=== PATIENT | female | born 1990 | race Caucasian/White ===

== ENCOUNTER → 2018-03-03 07:00 | Outpatient (REF) | payer MEDICARE, MEDICAID, SELFPAY | LOC: LBN 07:00 | PROVIDERS: PCP Nurse Practitioner Family; Visit Provider Nurse Practitioner Family | DX: R19.7 Diarrhea, unspecified (principal); R10.9 Unspecified abdominal pain | CPT/HCPCS: 87324 ==

== ENCOUNTER → 2018-03-13 01:07 | Outpatient (CLI) | payer MEDICARE, MEDICAID, SELFPAY ==
[2018-03-13 09:10] LABS: Abs Immature Grans 0.01 k/cumm (0.0-0.09); Absolute Basophil Count 0.02 k/cumm (0.0-0.2); Absolute Eosinophil Count 0.04 k/cumm (0.0-0.7); Absolute Lymphocyte Count 1.25 k/cumm (1.2-3.4); Absolute Monocyte Count 0.44 k/cumm (0.11-0.7); Absolute Neutrophil Count 3.55 k/cumm (1.2-6.7); Basophils % 0.4; Eosinophils % 0.8; HCT 33.8 % (36.0-46.0); HGB 11.5 g/dL (12.0-15.5); Immature Grans % 0.2; Lymphocytes % 23.5; Mean Corpuscular Hemoglobin 30.5 pg (27.0-33.0); Mean Corpuscular Volume 89.7 fL (80-95); Mean Platelet Volume 9.5 fL (8.0-11.0); Monocytes % 8.3; Neutrophils % 66.8; Platelet Count 212 x1000/uL (130-400); RBC 3.77 m/cumm (4.00-5.20); RBC Distribution Width 12.6 % (11.7-14.6); White Blood Cell Count 5.31 k/cumm (4.4-10.8)
[2018-03-13] MEDS: Omnipaque 350 MG/ML 100 ML BTL IJ (10:02)
--- NOTE | 2018-03-13 10:18 | DI.RPTCT_ITS ---
SYMPTOMS/DIAGNOSIS: ACUTE ABD PAIN, R10.9, LUQ PAIN, R10.12 CT SCAN OF THE ABDOMEN AND PELVIS: The study was carried out with intravenous administration of 69 cc's of Omnipaque 350 and oral ingestion of dilute barium. The lung bases are unremarkable. The liver is intact. The gallbladder, pancreas and spleen are normal. The kidneys and adrenals are normal. A grossly dilated gas and fluid containing stomach is identified. Gas is identified throughout the small bowel. Contrast material is noted in the distal small bowel and colon and a considerable quantity of colonic gas is evident. The rectum is distended with feces. There is nothing to suggest an acute appendix. There is no free fluid or free air in the intraperitoneal space. The uterus is unremarkable. There is a 2.8 cm left ovarian cyst. The bladder contains a small quantity of urine. Bladder wall thickening is likely on the basis of nondistention. There is no evidence of an aortic aneurysm. 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 SUMMARY: Findings consistent with a generalized ileus. The stomach is grossly distended with gas and fluid. Note is made of a 2.8 cm left ovarian cyst and a large quantity of fecal material in the rectum.
[2018-03-13 11:43] LABS: Bilirubin Negative (Negative); Blood Trace-intact (Negative); Clarity Clear; Glucose Negative (Negative); Ketones 40 mg/dL (Negative); Leukocyte Esterase Negative (Negative); Nitrite Negative (Negative); Specific Gravity <= 1.005 (1.005-1.025); Urobilinogen 0.2 EU/dL (Up TO 0.2)
[2018-03-13 12:00] LABS: Bacteria Few HPF (Negative); C & S Indicated? No; Casts Negative LPF (Negative); Crystals Negative HPF (Negative); Epithelial Cells Few HPF (Negative); Mucus Negative (Negative); RBC 0-2 (0-2); WBC 0-2 HPF (0-5)
== END ==
PROVIDERS: PCP Nurse Practitioner Family; Visit Provider Nurse Practitioner Family
DX: R10.12 Left upper quadrant pain (principal); R82.4 Acetonuria; K56.7 Ileus, unspecified; N83.292 Other ovarian cyst, left side
CPT/HCPCS: 74177; 81003; 81015; 85025; J3490

== ENCOUNTER 2018-06-11 14:42 | Outpatient (CLI) | payer MEDICARE, MEDICAID, SELFPAY ==
[2018-06-11 15:19] LABS: Abs Immature Grans 0.02 k/cumm (0.0-0.09); Absolute Basophil Count 0.02 k/cumm (0.0-0.2); Absolute Eosinophil Count 0.07 k/cumm (0.0-0.7); Absolute Lymphocyte Count 1.43 k/cumm (1.2-3.4); Absolute Neutrophil Count 4.21 k/cumm (1.2-6.7); Basophils % 0.3; Eosinophils % 1.1; HCT 36.3 % (36.0-46.0); HGB 11.9 g/dL (12.0-15.5); Immature Grans % 0.3; Lymphocytes % 22.9; Mean Corp. HGB Concentration 32.8 g/dL (32.0-36.0); Mean Corpuscular Hemoglobin 29.7 pg (27.0-33.0); Mean Corpuscular Volume 90.5 fL (80-95); Mean Platelet Volume 9.3 fL (8.0-11.0); Neutrophils % 67.4; Platelet Count 253 x1000/uL (130-400); RBC 4.01 m/cumm (4.00-5.20); RBC Distribution Width 13.2 % (11.7-14.6); White Blood Cell Count 6.25 k/cumm (4.4-10.8)
[2018-06-11 15:20] LABS: Bilirubin Negative (Negative); Blood Negative (Negative); Clarity Clear; Glucose Negative (Negative); Ketones Negative (Negative); Leukocyte Esterase Negative (Negative); Nitrite Negative (Negative); Specific Gravity >= 1.030 (1.005-1.025); Urobilinogen 0.2 EU/dL (Up TO 0.2); pH 6.5 (5-8)
== END 2018-06-11 15:02 ==
PROVIDERS: PCP Nurse Practitioner Family; Visit Provider Nurse Practitioner Family
DX: D64.9 Anemia, unspecified (principal); R31.9 Hematuria, unspecified
CPT/HCPCS: 36415; 81003; 85025

== ENCOUNTER 2019-01-01 19:45 | Emergency (ER) | payer MEDICARE, MEDICAID, SELFPAY ==
[2019-01-01 19:49] VITALS: BP 130/78; PULSE 72; RESP 20; TEMP 36.7; O2SAT 99
--- NOTE | 2019-01-01 20:45 | W.ED.GENAD ---
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 Clinical Impression: Gardnerella vaginalis infection Primary Care Provider: Olivia Alberto ED Provider: Nery Burch Home Meds and New Rx's Prescriptions: New metronidazole [Flagyl] 500 mg tablet 500 mg PO BID Qty: 13 RF: 0 Continued acetaminophen [Tylenol] 325 MG tablet 325 mg PO Q6H PRN PRNRF: 0 prazosin 1 MG capsule 2 mg PO HS RF: 0 medroxyprogesterone 150 MG/ML suspension 150 mg IM RF: 0 quetiapine [Seroquel] 25 MG tablet 50 mg PO BID RF: 0 cholecalciferol (vitamin D3) [Vitamin D3] 400 UNIT capsule 400 unit PO DAILY RF: 0 sertraline 25 MG tablet 150 mg PO HS RF: 0 omeprazole 20 mg Capsule,Delayed Release(Dr/Ec) 20 mg PO DAILY RF: 0 Discharge Instructions Instructions: Metronidazole (By mouth), Bacterial Vaginosis (ED) Additional Instructions: Encourage hydration. Tylenol and/or ibuprofen as needed for discomfort. Please take antibiotics as prescribed. Even if symptoms improve, please take the entire course. Please follow-up with primary care next week if symptoms do not completely resolve. If you develop fever/chills, vomiting, increased pain, inability stay hydrated or other new/worsening symptoms please seek care urgently once again Referrals: Olivia Alberto [Primary Care Provider] - Medical Decision Making Patient is a 28 year old female, accompanied by care givers, with cc of vaginal pain. Patient has history of anxiety, depression, developmental delay. No previous abdominal surgeries. States that she was having some itching, had been endorsing this for the past few days. Was seen by PCP today. Care givers report that she typically does not allow for vaginal exam. Was diagnosed with yeast infection and started on oral therapy. Despite this, symptoms have increased. No known fevers. Care givers report diminished appetite. No abdominal pain on exam. She would not tolerate speculum exam. No notable lesions, swelling on exam of external genitalia. She does have thin white discharge, have sent for vaginal pathology. As she is difficult to obtian history from and symptoms are very vague, plan for labs as well. Abdomen benign, no peritoneal findings. Patietn appears nontoxic, she appears to be at her baseline Gardnerella positive. Blood work reassuring without significant abnormality. Discussed findings with patient and caregivers. Raimundo treat with Flagyl. Given strict return precautions. Advised f/u with PCP next week. She will continue with Flagyl. All questions and concerns were addressed. Patient and caregivers in agreement with this plan. HPI General Mode of arrival: ambulatory. Date/Time Provider Initiated Documentation: 01/01/19 20:38. Limitations to Documentation: no limitations. Information obtained by: patient, family (accompanied by 3 caregivers) and RN notes reviewed. History of Present Illness 28 year old F presents to the emergency department with the chief complaint of vaginal pain, described as severe, with intensity rated at 10. Quality is described as burning, and is localized to the genitals. Patient reports no radiation. Patient started experiencing this day(s) and it has been constant. No relieving factors improve symptom(s), No exacerbating factors reported . Patient notes loss of appetite; denies chest pain, fever/chills, headaches, nausea/vomiting and rash. Patient did receive the following treatments prior to arrival, other (tylenol) Related Data Home Medications Medication Instructions Recorded Confirmed acetaminophen [Tylenol] 325 mg PO Q6H PRN PRN 01/08/13 01/01/19 medroxyprogesterone 150 mg IM 01/08/13 01/08/13 prazosin 2 mg PO HS 01/08/13 01/01/19 quetiapine [Seroquel] 50 mg PO BID 04/27/16 01/01/19 cholecalciferol (vitamin D3) 400 unit PO DAILY 03/22/17 01/01/19 [Vitamin D3] sertraline 150 mg PO HS 03/22/17 01/01/19 metronidazole [Flagyl] 500 mg PO BID #13 tab 01/01/19 omeprazole 20 mg PO DAILY 01/01/19 01/01/19 Previous Rx's Medication Instructions Recorded metronidazole [Flagyl] 500 mg PO BID #13 tab 01/01/19 Allergies Allergy/AdvReac Type Severity Reaction Status Date / Time erythromycin base AdvReac Unknown unknown Unverified 01/01/19 19:56 [Erythromycin Base] melatonin AdvReac Unknown states a Unverified 01/01/19 19:56 sensitivity Sulfa (Sulfonamide AdvReac Unknown states Unverified 01/01/19 19:56 Antibiotics) sensitivty sulfamethoxazole AdvReac Unknown unkown Unverified 01/01/19 19:56 [From Bactrim] trimethoprim [From Bactrim] AdvReac Unknown unkown Unverified 01/01/19 19:56 tape AdvReac Mild Hives Uncoded 01/01/19 19:56 General Stated Complaint: LIGHT CLEANER TUNG: 4 Review of Systems Constitutional Reports as per HPI, Denies chills, Denies fatigue, Denies fever(s) and Denies headache(s) ENT Denies headache(s) Cardiovascular Reports as per HPI, Denies chest pain and Denies dyspnea Respiratory Reports as per HPI, Denies cough and Denies dyspnea Gastrointestinal Reports as per HPI Musculoskeletal Reports as per HPI and Denies back pain Integumentary/Breasts Reports as per HPI and Denies rash Neurologic Reports as per HPI and Denies headache(s) Endocrine Denies fatigue PFS Social History Smoking/Tobacco Use Status: Never Drug use: Never Exam Const General: cooperative, healthy appearing, comfortable, no acute distress and well developed Nutritional Appearance: average body habitus and well nourished Orientation: alert and awake HENMT Head: normal to inspection Mouth: moist mucous membranes Resp Effort & Inspection: normal respiratory effort, able to speak in complete sentences and no respiratory distress Auscultation: clear to auscultation bilaterally, no rales, no rhonchi and no wheezes Cardio Rate: regular rate Rhythm: regular rhythm Heart Sounds: S1 normal and S2 normal GI Inspection: normal to inspection Palpation: soft, no hepatosplenomegaly, not firm, no guarding, not rigid and nontender Percussion: normal to percussion Auscultation: normal bowel sounds External Female Exam: external appearance normal, no erythema, externally tender bilaterally (patient very jumpy during exam, reports generalized pain), no external swelling, no lesions, no ecchymosis, No lesion of urethra, No bartholin cyst and other (white vaginal discharge noted) Speculum Exam - Vagina: abnormal appearance of the vagina (will not tolerate this exam) Back/Spine/Pelvis Back: no CVA tenderness Skin General skin exam: no rashes or lesions noted Trauma: no lacerations or abrasions Neuro General: alert and awake Cognition: normal cognition Speech: speech normal Gait: normal gait Extrem General: normal to inspection, normal capillary refill, no pedal edema, no calf tenderness and normal gait Psych Appearance: grossly normal and well kempt Mental Status: mental status grossly normal Speech and Movement: speech and movement normal Course Vital Signs Temperature 36.7 C 01/01/19 19:49 Pulse 72 01/01/19 19:49 Respiratory Rate 20 01/01/19 19:49 Blood Pressure 130/78 01/01/19 19:49 Pulse Oximetry 99 01/01/19 19:49 Temperature 36.7 C 01/01/19 19:49 Temperature Source Skin 01/01/19 19:49 Pulse 72 01/01/19 19:49 Respiratory Rate 20 01/01/19 19:49 Respiratory Effort Non-Labored 01/01/19 20:04 Blood Pressure 130/78 01/01/19 19:49 Blood Pressure Position Standing 01/01/19 19:49 Pulse Oximetry 99 01/01/19 19:49 Oxygen Delivery Method Room Air 01/01/19 19:49 Oxygen Flow Rate 0 01/01/19 19:49 Pain Level 10 01/01/19 19:49
[2019-01-01] MEDS: Ibuprofen 600 MG TAB PO (21:00)
[2019-01-01 21:27] LABS: Bilirubin Negative (Negative); Blood Trace-lysed (Negative); Clarity Clear; Glucose Negative (Negative); Ketones 15 mg/dL (Negative); Leukocyte Esterase Negative (Negative); Nitrite Negative (Negative); Specific Gravity >= 1.030 (1.005-1.025); Urobilinogen 0.2 EU/dL (Up TO 0.2); pH 5.5 (5-8)
[2019-01-01 21:35] LABS: Bacteria Few HPF (Negative); C & S Indicated? No/Sq. Contamination; Casts Negative LPF (Negative); Crystals Negative HPF (Negative); Epithelial Cells Moderate HPF (Negative); Mucus Heavy (Negative); Other Cells Negative (Negative); RBC 0-2 (0-2)
[2019-01-01 22:45] LABS: Lactate-non-spesis 0.9 mmol/l (0.6-1.4)
[2019-01-01 22:48] LABS: Abs Immature Grans 0.01 k/cumm (0.0-0.09); Absolute Basophil Count 0.02 k/cumm (0.0-0.2); Absolute Eosinophil Count 0.06 k/cumm (0.0-0.7); Absolute Lymphocyte Count 1.63 k/cumm (1.2-3.4); Absolute Monocyte Count 0.47 k/cumm (0.11-0.7); Absolute Neutrophil Count 4.29 k/cumm (1.2-6.7); Basophils % 0.3; Eosinophils % 0.9; HCT 38.1 % (36.0-46.0); HGB 12.8 g/dL (12.0-15.5); Immature Grans % 0.2; Lymphocytes % 25.2; Mean Corp. HGB Concentration 33.6 g/dL (32.0-36.0); Mean Corpuscular Hemoglobin 29.4 pg (27.0-33.0); Mean Corpuscular Volume 87.6 fL (80-95); Mean Platelet Volume 9.2 fL (8.0-11.0); Monocytes % 7.3; Neutrophils % 66.1; Platelet Count 213 x1000/uL (130-400); RBC 4.35 m/cumm (4.00-5.20); RBC Distribution Width 13.1 % (11.7-14.6); White Blood Cell Count 6.48 k/cumm (4.4-10.8)
--- NOTE | 2019-01-01 23:18 | ED.GENADUL_ITS ---
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 Clinical Impression: Gardnerella vaginalis infection Primary Care Provider: Olivia Alberto ED Provider: Nery Burch Home Meds and New Rx's Prescriptions: New metronidazole [Flagyl] 500 mg tablet 500 mg PO BID Qty: 13 RF: 0 Continued acetaminophen [Tylenol] 325 MG tablet 325 mg PO Q6H PRN PRNRF: 0 prazosin 1 MG capsule 2 mg PO HS RF: 0 medroxyprogesterone 150 MG/ML suspension 150 mg IM RF: 0 quetiapine [Seroquel] 25 MG tablet 50 mg PO BID RF: 0 cholecalciferol (vitamin D3) [Vitamin D3] 400 UNIT capsule 400 unit PO DAILY RF: 0 sertraline 25 MG tablet 150 mg PO HS RF: 0 omeprazole 20 mg Capsule,Delayed Release(Dr/Ec) 20 mg PO DAILY RF: 0 Discharge Instructions Instructions: Metronidazole (By mouth), Bacterial Vaginosis (ED) Additional Instructions: Encourage hydration. Tylenol and/or ibuprofen as needed for discomfort. Please take antibiotics as prescribed. Even if symptoms improve, please take the entire course. Please follow-up with primary care next week if symptoms do not completely resolve. If you develop fever/chills, vomiting, increased pain, inability stay hydrated or other new/worsening symptoms please seek care urgently once again Referrals: Olivia Alberto [Primary Care Provider] - Medical Decision Making Patient is a 28 year old female, accompanied by care givers, with cc of vaginal pain. Patient has history of anxiety, depression, developmental delay. No previous abdominal surgeries. States that she was having some itching, had been endorsing this for the past few days. Was seen by PCP today. Care givers report that she typically does not allow for vaginal exam. Was diagnosed with yeast infection and started on oral therapy. Despite this, symptoms have increased. No known fevers. Care givers report diminished appetite. No abdominal pain on exam. She would not tolerate speculum exam. No notable lesions, swelling on exam of external genitalia. She does have thin white discharge, have sent for vaginal pathology. As she is difficult to obtian history from and symptoms are very vague, plan for labs as well. Abdomen benign, no peritoneal findings. Patietn appears nontoxic, she appears to be at her baseline Gardnerella positive. Blood work reassuring without significant abnormality. Discussed findings with patient and caregivers. Raimundo treat with Flagyl. Given strict return precautions. Advised f/u with PCP next week. She will continue with Flagyl. All questions and concerns were addressed. Patient and caregivers in agreement with this plan. HPI General Mode of arrival: ambulatory . Date/Time Provider Initiated Documentation: 01/01/19 20:38 . Limitations to Documentation: no limitations . Information obtained by: patient, family (accompanied by 3 caregivers) and RN notes reviewed . History of Present Illness 28 year old F presents to the emergency department with the chief complaint of vaginal pain, described as severe, with intensity rated at 10. Quality is described as burning, and is localized to the genitals. Patient reports no radiation. Patient started experiencing this day(s) and it has been constant. No relieving factors improve symptom(s), No exacerbating factors reported . Patient notes loss of appetite; denies chest pain, fever/chills, headaches, nausea/vomiting and rash. Patient did receive the following treatments prior to arrival, other (tylenol) Related Data Home Medications Medication Instructions Recorded Confirmed acetaminophen [Tylenol] 325 mg PO Q6H PRN PRN 01/08/13 01/01/19 medroxyprogesterone 150 mg IM 01/08/13 01/08/13 prazosin 2 mg PO HS 01/08/13 01/01/19 quetiapine [Seroquel] 50 mg PO BID 04/27/16 01/01/19 cholecalciferol (vitamin D3) 400 unit PO DAILY 03/22/17 01/01/19 [Vitamin D3] sertraline 150 mg PO HS 03/22/17 01/01/19 metronidazole [Flagyl] 500 mg PO BID #13 tab 01/01/19 omeprazole 20 mg PO DAILY 01/01/19 01/01/19 Previous Rx's Medication Instructions Recorded metronidazole [Flagyl] 500 mg PO BID #13 tab 01/01/19 Allergies Allergy/AdvReac Type Severity Reaction Status Date / Time erythromycin base AdvReac Unknown unknown Unverified 01/01/19 19:56 [Erythromycin Base] melatonin AdvReac Unknown states a Unverified 01/01/19 19:56 sensitivity Sulfa (Sulfonamide AdvReac Unknown states Unverified 01/01/19 19:56 Antibiotics) sensitivty sulfamethoxazole AdvReac Unknown unkown Unverified 01/01/19 19:56 [From Bactrim] trimethoprim [From Bactrim] AdvReac Unknown unkown Unverified 01/01/19 19:56 tape AdvReac Mild Hives Uncoded 01/01/19 19:56 General 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 TUNG: 4 Review of Systems Constitutional Reports as per HPI, Denies chills, Denies fatigue, Denies fever(s) and Denies headache(s) ENT Denies headache(s) Cardiovascular Reports as per HPI, Denies chest pain and Denies dyspnea Respiratory Reports as per HPI, Denies cough and Denies dyspnea Gastrointestinal Reports as per HPI Musculoskeletal Reports as per HPI and Denies back pain Integumentary/Breasts Reports as per HPI and Denies rash Neurologic Reports as per HPI and Denies headache(s) Endocrine Denies fatigue PFS Social History Smoking/Tobacco Use Status: Never Drug use: Never Exam Const General: cooperative, healthy appearing, comfortable, no acute distress and well developed Nutritional Appearance: average body habitus and well nourished Orientation: alert and awake HENMT Head: normal to inspection Mouth: moist mucous membranes Resp Effort & Inspection: normal respiratory effort, able to speak in complete sentences and no respiratory distress Auscultation: clear to auscultation bilaterally, no rales, no rhonchi and no wheezes Cardio Rate: regular rate Rhythm: regular rhythm Heart Sounds: S1 normal and S2 normal GI Inspection: normal to inspection Palpation: soft, no hepatosplenomegaly, not firm, no guarding, not rigid and nontender Percussion: normal to percussion Auscultation: normal bowel sounds External Female Exam: external appearance normal, no erythema, externally tender bilaterally (patient very jumpy during exam, reports generalized pain), no external swelling, no lesions, no ecchymosis, No lesion of urethra, No bartholin cyst and other (white vaginal discharge noted) Speculum Exam - Vagina: abnormal appearance of the vagina (will not tolerate this exam) Back/Spine/Pelvis Back: no CVA tenderness Skin General skin exam: no rashes or lesions noted Trauma: no lacerations or abrasions Neuro General: alert and awake Cognition: normal cognition Speech: speech normal Gait: normal gait Extrem General: normal to inspection, normal capillary refill, no pedal edema, no calf tenderness and normal gait Psych Appearance: grossly normal and well kempt Mental Status: mental status grossly normal Speech and Movement: speech and movement normal Course Vital Signs Temperature 36.7 C 01/01/19 19:49 Pulse 72 01/01/19 19:49 Respiratory Rate 20 01/01/19 19:49 Blood Pressure 130/78 01/01/19 19:49 Pulse Oximetry 99 01/01/19 19:49 Temperature 36.7 C 01/01/19 19:49 Temperature Source Skin 01/01/19 19:49 Pulse 72 01/01/19 19:49 Respiratory Rate 20 01/01/19 19:49 Respiratory Effort Non-Labored 01/01/19 20:04 Blood Pressure 130/78 01/01/19 19:49 Blood Pressure Position Standing 01/01/19 19:49 Pulse Oximetry 99 01/01/19 19:49 Oxygen Delivery Method Room Air 01/01/19 19:49 Oxygen Flow Rate 0 01/01/19 19:49 Pain Level 10 01/01/19 19:49
[2019-01-01 23:34] LABS: ALT 18 U/L (12-78); AST 14 U/L (15-37); Albumin 4.4 g/dL (3.4-5.0); Alkaline Phosphatase 55 U/L (46-116); Anion Gap 10.8 mmol/L (3-11); BUN 13 mg/dL (7-18); Bilirubin, Total 0.4 mg/dL (0.2-1.0); CO2 26.2 mmol/L (21.0-32.0); CREATININE 0.73 mg/dL (0.55-1.02); Calcium 9.5 mg/dL (8.5-10.1); Chloride 105 mmol/L (98-107); Glucose 87 mg/dL (70-100); Lipase 167 U/L (73-393); Potassium 3.6 mmol/L (3.5-5.1); Sodium 142 mmol/L (136-145); Total Protein 7.9 g/dL (6.4-8.2)
[2019-01-01] MEDS: metroNIDAZOLE 500 MG TAB PO (23:59)
== END 2019-01-02 00:05 | disposition home or self-care (01) ==
PROVIDERS: Emergency Provider Physician Assistant; PCP Nurse Practitioner Family
DX: B96.89 Other specified bacterial agents as the cause of diseases classified elsewhere (principal)
CPT/HCPCS: 36415; 80053; 81025; 83690; 99283; 81003; 81015; 83605; 85025; 87480; 87510; 87660

== ENCOUNTER 2019-01-14 16:25 | Outpatient (CLI) | payer MEDICARE, MEDICAID, SELFPAY ==
[2019-01-14 17:05] LABS: Bilirubin Negative (Negative); Blood Trace-intact (Negative); Clarity Clear (Clear); Glucose Negative (Negative); Ketones 15 mg/dL (Negative); Leukocyte Esterase Negative (Negative); Nitrite Negative (Negative); Specific Gravity >= 1.030 (1.005-1.025); Urobilinogen 0.2 EU/dL (Up TO 0.2)
[2019-01-14 17:08] LABS: C & S Indicated? C&S Done As Ordered
[2019-01-14 17:21] LABS: Bacteria Moderate HPF (Negative); Casts Negative LPF (Negative); Crystals Negative HPF (Negative); Epithelial Cells Moderate HPF (Negative); Mucus Moderate (Negative); Other Cells Negative (Negative); WBC 0-2 HPF (0-5)
== END 2019-01-14 16:45 ==
PROVIDERS: PCP Nurse Practitioner Family; Visit Provider Nurse Practitioner Family
DX: N39.0 Urinary tract infection, site not specified (principal)
CPT/HCPCS: 81003; 81015; 87086

== ENCOUNTER 2019-01-20 14:45 | Outpatient (CLI) | payer MEDICARE, MEDICAID, SELFPAY ==
[2019-01-20 15:02] LABS: Bilirubin Negative (Negative); Blood Trace-lysed (Negative); Clarity Sl Cloudy (Clear); Glucose Negative (Negative); Ketones Negative (Negative); Leukocyte Esterase Small (Negative); Nitrite Negative (Negative); Specific Gravity 1.025 (1.005-1.025); Urobilinogen 0.2 EU/dL (Up TO 0.2); pH 5.5 (5-8)
[2019-01-20 15:23] LABS: Bacteria Moderate HPF (Negative); C & S Indicated? C&S Done As Ordered; Casts Negative LPF (Negative); Crystals Negative HPF (Negative); Epithelial Cells Moderate HPF (Negative); Mucus Trace (Negative); RBC 0-2 (0-2)
== END 2019-01-20 15:05 ==
PROVIDERS: PCP Nurse Practitioner Family; Visit Provider Nurse Practitioner Family
DX: N39.0 Urinary tract infection, site not specified (principal)
CPT/HCPCS: 81003; 81015; 87086

== ENCOUNTER 2019-01-28 15:52 | Outpatient (CLI) | payer MEDICARE, MEDICAID, SELFPAY ==
[2019-01-28 16:12] LABS: Abs Immature Grans 0.01 k/cumm (0.0-0.09); Absolute Basophil Count 0.02 k/cumm (0.0-0.2); Absolute Eosinophil Count 0.08 k/cumm (0.0-0.7); Absolute Lymphocyte Count 1.97 k/cumm (1.2-3.4); Absolute Monocyte Count 0.68 k/cumm (0.11-0.7); Basophils % 0.3; Eosinophils % 1.4; HCT 36.8 % (36.0-46.0); HGB 12.3 g/dL (12.0-15.5); Immature Grans % 0.2; Lymphocytes % 33.6; Mean Corp. HGB Concentration 33.4 g/dL (32.0-36.0); Mean Corpuscular Hemoglobin 29.5 pg (27.0-33.0); Mean Corpuscular Volume 88.2 fL (80-95); Mean Platelet Volume 9.2 fL (8.0-11.0); Monocytes % 11.6; Neutrophils % 52.9; Platelet Count 222 x1000/uL (130-400); RBC 4.17 m/cumm (4.00-5.20); RBC Distribution Width 13.2 % (11.7-14.6); White Blood Cell Count 5.86 k/cumm (4.4-10.8)
== END 2019-01-28 16:12 ==
PROVIDERS: PCP Nurse Practitioner Family; Visit Provider Nurse Practitioner Family
DX: D72.829 Elevated white blood cell count, unspecified (principal)
CPT/HCPCS: 36415; 85025

== ENCOUNTER 2019-03-06 16:11 | Outpatient (CLI) | payer MEDICARE, MEDICAID, SELFPAY ==
[2019-03-06 16:35] LABS: Abs Immature Grans 0.01 k/cumm (0.0-0.09); Absolute Basophil Count 0.01 k/cumm (0.0-0.2); Absolute Eosinophil Count 0.08 k/cumm (0.0-0.7); Absolute Lymphocyte Count 1.54 k/cumm (1.2-3.4); Basophils % 0.2; Eosinophils % 1.4; HCT 38.4 % (36.0-46.0); HGB 12.9 g/dL (12.0-15.5); Immature Grans % 0.2; Lymphocytes % 27.8; Mean Corp. HGB Concentration 33.6 g/dL (32.0-36.0); Mean Corpuscular Hemoglobin 29.8 pg (27.0-33.0); Mean Corpuscular Volume 88.7 fL (80-95); Mean Platelet Volume 9.2 fL (8.0-11.0); Neutrophils % 61.4; Platelet Count 230 x1000/uL (130-400); RBC 4.33 m/cumm (4.00-5.20); White Blood Cell Count 5.54 k/cumm (4.4-10.8)
[2019-03-06 17:19] LABS: ALT 42 U/L (12-78); AST 25 U/L (15-37); Albumin 3.9 g/dL (3.4-5.0); Alkaline Phosphatase 57 U/L (46-116); Anion Gap 11.5 mmol/L (3-11); BUN 10 mg/dL (7-18); Bilirubin, Total 0.5 mg/dL (0.2-1.0); CO2 25.5 mmol/L (21.0-32.0); CREATININE 0.71 mg/dL (0.55-1.02); Calcium 8.9 mg/dL (8.5-10.1); Chloride 103 mmol/L (98-107); Glucose 81 mg/dL (70-100); Potassium 4.3 mmol/L (3.5-5.1); Sodium 140 mmol/L (136-145); Total Protein 7.5 g/dL (6.4-8.2)
== END 2019-03-06 16:31 ==
PROVIDERS: PCP Nurse Practitioner Family; Visit Provider Nurse Practitioner Family
DX: R14.0 Abdominal distension (gaseous) (principal); R10.9 Unspecified abdominal pain; R63.0 Anorexia
CPT/HCPCS: 36415; 80053; 85025

== ENCOUNTER 2019-03-13 09:00 | Outpatient (REF) | payer MEDICARE, MEDICAID, SELFPAY ==
[2019-03-14 10:30] LABS: Bilirubin Negative (Negative); Blood Negative (Negative); Clarity Cloudy (Clear); Glucose Negative (Negative); Ketones Negative (Negative); Leukocyte Esterase Negative (Negative); Nitrite Negative (Negative); Specific Gravity >= 1.030 (1.005-1.025); Urobilinogen 0.2 EU/dL (Up TO 0.2)
== END 2019-03-13 09:20 ==
LOC: LBN 09:00
PROVIDERS: PCP Nurse Practitioner Family; Visit Provider Nurse Practitioner Family
DX: N39.0 Urinary tract infection, site not specified (principal)
CPT/HCPCS: 81003; 87086

== ENCOUNTER 2020-02-26 03:26 | Outpatient (CLI) | payer MEDICARE, MEDICAID, SELFPAY ==
[2020-02-26 12:19] LABS: Abs Immature Grans 0.02 10^3/uL (0.0-0.06); Absolute Basophil Count 0.03 10^3/uL (0.0-0.2); Absolute Eosinophil Count 0.13 10^3/uL (0.0-0.7); Absolute Lymphocyte Count 1.68 10^3/uL (1.2-3.4); Absolute Monocyte Count 0.49 10^3/uL (0.1-0.8); Absolute Neutrophil Count 4.28 10^3/uL (1.2-6.7); Basophils % 0.5; HCT 35.1 % (36.0-46.0); HGB 11.2 g/dL (11.2-15.7); Immature Grans % 0.3; Lymphocytes % 25.3; MCH 27.4 pg (27.0-33.0); MCHC 31.9 % (32.0-36.0); MCV 85.8 fL (80-95); MPV 9.9 fL (8.0-11.0); Monocytes % 7.4; Neutrophils % 64.5; Nucleated RBC 0 %; Platelet Count 247 10^3/uL (130-400); RBC 4.09 10^6/uL (3.93-5.22); RDW 13.6 % (11.7-14.6); RDW-SD 42.5 fL; WBC 6.63 10^3/uL (4.4-10.8)
[2020-02-26 12:41] LABS: ALT 19 U/L (14-59); AST 14 U/L (15-37); Albumin 3.9 g/dL (3.4-5.0); Alkaline Phosphatase 67 U/L (46-116); Anion Gap 9.2 mmol/L (3-11); BUN 13 mg/dL (7-18); Bilirubin, Total 0.3 mg/dL (0.2-1.0); CO2 26.8 mmol/L (21.0-32.0); CREATININE 0.66 mg/dL (0.55-1.02); Calcium 8.8 mg/dL (8.5-10.1); Calculated LDL 154 mg/dL (<100); Chloride 104 mmol/L (98-107); Cholesterol 225 mg/dL (<200); Glucose 81 mg/dL (74-106); HCG Quant, Pregnancy < 1 mIU/mL (1-3); HDL Cholesterol 63 mg/dL (40-60); Potassium 4.3 mmol/L (3.5-5.1); Sodium 140 mmol/L (136-145); TSH 1.34 uIU/mL (0.36-3.74); Total Protein 7.2 g/dL (6.4-8.2); Triglyceride 44 mg/dL (<150)
[2020-02-26 12:51] LABS: Vitamin D 25 Total 31.6 ng/ml (30-100)
== END 2020-02-26 03:46 ==
PROVIDERS: PCP Nurse Practitioner Family; Visit Provider Nurse Practitioner Family
DX: N91.2 Amenorrhea, unspecified (principal); Z00.00 Encounter for general adult medical examination without abnormal findings
CPT/HCPCS: 36415; 80053; 80061; 82306; 84443; 84702; 85025

== ENCOUNTER 2022-05-19 01:40 | Outpatient (CLI) | payer MEDICARE, MEDICAID, SELFPAY ==
[2022-05-19 12:20] LABS: Abs Immature Grans 0.01 10^3/uL (0.0-0.06); Absolute Basophil Count 0.03 10^3/uL (0.0-0.2); Absolute Eosinophil Count 0.12 10^3/uL (0.0-0.7); Absolute Lymphocyte Count 1.75 10^3/uL (1.2-3.4); Absolute Monocyte Count 0.56 10^3/uL (0.1-0.8); Absolute Neutrophil Count 3.78 10^3/uL (1.2-6.7); Basophils % 0.5; Eosinophils % 1.9; HCT 33.8 % (36.0-46.0); HGB 10.5 g/dL (11.2-15.7); Immature Grans % 0.2; MCH 24.5 pg (27.0-33.0); MCHC 31.1 % (32.0-36.0); MCV 79 fL (80-95); MPV 9.8 fL (8.0-11.0); Neutrophils % 60.4; Platelet Count 328 10^3/uL (130-400); RBC 4.29 10^6/uL (3.93-5.22); RDW 14.6 % (11.7-14.6); WBC 6.25 10^3/uL (4.4-10.8)
[2022-05-19 12:37] LABS: ALT 17 U/L (14-59); AST 12 U/L (15-37); Albumin 3.6 g/dL (3.4-5.0); Alkaline Phosphatase 73 U/L (46-116); BUN 8 mg/dL (7-18); Bilirubin, Total 0.4 mg/dL (0.2-1.0); CREATININE 0.7 mg/dL (0.55-1.02); Calculated LDL 117 mg/dL (<100); Chloride 103 mmol/L (98-107); Cholesterol 190 mg/dL (<200); Estimated GFR 117.77 (mL/min/1.73m2); Glucose 84 mg/dL (74-106); HDL Cholesterol 59 mg/dL (40-60); Sodium 139 mmol/L (136-145); Total Protein 7.6 g/dL (6.4-8.2); Triglyceride 72 mg/dL (<150)
[2022-05-19 12:55] LABS: Vitamin D 25 Total 32.5 ng/mL (30-100)
== END 2022-05-19 01:41 | disposition home or self-care (01) ==
PROVIDERS: PCP Nurse Practitioner Family; Visit Provider Student in an Organized Health Care Education/Training Program
DX: E78.41 Elevated Lipoprotein(a) (principal); E55.9 Vitamin D deficiency, unspecified
CPT/HCPCS: 36415; 80053; 80061; 82306; 85025

== ENCOUNTER → 2023-10-26 15:39 | Outpatient (CLI) | payer MEDICARE, MEDICAID, SELFPAY ==
--- NOTE | 2023-10-26 15:30 | DI.RAD_ITS ---
Exam(s) XR FOOT LT COMPLETE EXAM: XR FOOT LT COMPLETE CLINICAL HISTORY: PAIN OF LEFT FOOT M79.672. TECHNIQUE: 2D digital imaging was performed. COMPARISON: No exams were available for comparison FINDINGS: 3 views No evidence of fracture or diastasis of the Lisfranc joint. Bone density normal. No osseous lesions nor erosions. No pes planus. Tiny inferior calcaneal spur noted. No abnormal calcification eviden t in the plantar fascia. Great toe metatarsophalangeal joint appears unremarkable. IMPRESSION: No acute osseous findings in the foot. DATA REPOSITORY: RADIATION DOSE DELIVERED:
--- NOTE | 2023-10-26 15:30 | DI.RAD_ITS ---
Exam(s) XR ANKLE LT COMPLETE EXAM: XR ANKLE LT COMPLETE CLINICAL HISTORY: PAIN OF LEFT ANKLE, M25.572. TECHNIQUE: 2D digital imaging was performed. COMPARISON: No exams were available for comparison FINDINGS: 3 views No evidence of fracture or widening of the ankle mortise. Talar dome unremarkable. No osseous lesio ns. No tarsal coalition evident. IMPRESSION: No acute osseous findings. DATA REPOSITORY: RADIATION DOSE DELIVERED:
== END ==
PROVIDERS: PCP Nurse Practitioner Family; Visit Provider Physician Assistant Medical
DX: M25.572 Pain in left ankle and joints of left foot (principal)
CPT/HCPCS: 73610; 73630

== ENCOUNTER 2024-04-16 16:22 | Emergency (ER) | payer MEDICARE, MEDICAID, SELFPAY ==
[2024-04-16 16:31] VITALS: BP 126/79; PULSE 100; RESP 15; TEMP 36.9; O2SAT 99
[2024-04-16 16:37] VITALS: BP 126/79; PULSE 100; RESP 15; TEMP 36.9; O2SAT 99
--- NOTE | 2024-04-16 16:45 | DI.CT_ITS ---
Exam(s) CT ABDOMEN PELVIS W EXAM: CT ABDOMEN PELVIS W CLINICAL HISTORY: abdominal pain, vomiting TECHNIQUE: Imaging Protocol: Axial computed tomography images with coronal and sagittal reformatted images were created and reviewed. CONTRAST MATERIAL: Intravenous: Omnipaque 350 Contrast volume:85 mL Oral: No COMPARISON: US PELVIS ULTRASOUND *(P) from 01/09/2018 FINDINGS: The examination is limited due to patient motion artifact. ABDOMEN: Lung Bases: Normal where visualized. Liver: Normal density. No measurable mass. There is focal fatty infiltration in the left lobe of the liver. No suspicious hepatic masses are seen. Portal, Superior Mesenteric, and Splenic Veins: Unremarkable. Gallbladder and Biliary Tract: No radiodense calculus or dilation. Pancreas: Normal density, no abnormal calcifications or inflammatory process. Spleen: Normal. Adrenals: No masses seen. Kidneys: Normal size, contour and axis. No radiodense stones or obstructive uropathy. There is a smal l right renal cysts. No follow-up is recommended. Abdominal Aorta: Abdominal portion non-dilated. Bowel: No obstruction or bowel wall thickening. There is no evidence of appendicitis. Peritoneal Cavity: No ascites, collection or mesenteric inflammatory response. No free air. Lymph Nodes: Within normal limits. Bones: Within normal limits for the patient's age. 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 Soft Tissues: Unremarkable. PELVIS: Bladder: The urinary bladder is incompletely distended. No gross abnormalities identified. Reproductive Organs: Unremarkable as visualized. Lymph Nodes: Within normal limits. Bones: Within normal limits for the patient's age. IMPRESSION: No acute abdominal or pelvic process. RADIATION DOSE DELIVERED: 401.22mGy.cm Total DLP DATA REPOSITORY: All CT scans at this facility are submitted to the National Radiology Data Registry (NRDR) Dose Index Registry (DIR) with the [employer] ([employer]). RADIATION OPTIMIZATION: All CT scans at this facility use at least one of these dose optimization te chniques: automated exposure control; mA and/or kV adjustment per patient size (includes targeted exa ms where dose is matched to clinical indication); or iterative reconstruction.
--- NOTE | 2024-04-16 16:45 | RT.EKG_ITS ---
APPROVED REPORT Exam: Resting ECG Reason for Exam: vomiting Patient Location: E HR:89 bpm ECG Measurements Heart Rate 89 AXIS VA 134 P 86 QRSd 104 QRS 66 QT 373 T 19 QTc 455 Conclusion Sinus rhythm, rate 89 No interval abnormalities or STEMI Limited by baseline artifact
--- NOTE | 2024-04-16 17:00 | RT.EKG_ITS ---
APPROVED REPORT Exam: Resting ECG Reason for Exam: vomiting Patient Location: E HR:94 bpm ECG Measurements Heart Rate 94 AXIS OH 104 P 12 QRSd 101 QRS 66 QT 378 T 40 QTc 456 Conclusion Sinus rhythm, rate 94 No intercal abnormalities No apparent STEMI Limited by baseline artifact
[2024-04-16 17:17] LABS: Abs Immature Grans 0.02 10^3/uL (0.0-0.06); Absolute Basophil Count 0.04 10^3/uL (0.0-0.2); Absolute Eosinophil Count 0.03 10^3/uL (0.0-0.7); Absolute Lymphocyte Count 1.26 10^3/uL (1.2-3.4); Absolute Monocyte Count 0.55 10^3/uL (0.1-0.8); Absolute Neutrophil Count 5.32 10^3/uL (1.2-6.7); Basophils % 0.6 %; Eosinophils % 0.4 %; HCT 37.5 % (36.0-46.0); HGB 11.9 g/dL (11.2-15.7); Immature Grans % 0.3 %; Lymphocytes % 17.5 %; MCH 26.7 pg (27.0-33.0); MCHC 31.7 % (32.0-36.0); MCV 84 fL (80-95); MPV 9.3 fL (8.0-11.0); Monocytes % 7.6 %; Neutrophils % 73.6 %; Platelet Count 269 10^3/uL (130-400); RBC 4.45 10^6/uL (3.93-5.22); RDW-SD 43.2 fL; WBC 7.22 10^3/uL (4.4-10.8)
[2024-04-16 17:19] LABS: Bilirubin Moderate (Negative); Blood Negative (Negative); Clarity Clear (Clear); Glucose Negative (Negative); Ketones >=160 mg/dL (Negative); Leukocyte Esterase Negative (Negative); Nitrite Negative (Negative); Specific Gravity >= 1.030 (1.005-1.025)
[2024-04-16 17:29] LABS: Bacteria Rare HPF (Negative); C & S Indicated? No/Sq. Contamination; Casts Negative LPF (Negative); Crystals Negative HPF (Negative); Epithelial Cells Many HPF (Negative); Mucus Heavy (Negative); RBC 0-2 HPF (0-2)
[2024-04-16] MEDS: Normal Saline 1,000 ML 1000 ML IV ×2 (17:30→20:00)
[2024-04-16 17:33] LABS: ALT 36 U/L (14-59); AST 29 U/L (15-37); Albumin 3.8 g/dL (3.4-5.0); Alkaline Phosphatase 77 U/L (46-116); Anion Gap 11.7 mmol/L (3-11); BUN 14 mg/dL (7-18); Bilirubin, Total 0.38 mg/dL (0.2-1.0); CO2 24.3 mmol/L (21.0-32.0); CREATININE 0.8 mg/dL (0.55-1.02); Calcium 9.3 mg/dL (8.5-10.1); Chloride 102 mmol/L (98-107); Estimated GFR 99.09 (mL/min/1.73m2); Glucose 97 mg/dL (74-106); Lipase 29 U/L (16-77); Magnesium 1.8 mg/dL (1.8-2.4); Potassium 3.3 mmol/L (3.5-5.1); Sodium 138 mmol/L (136-145); Total Protein 7.9 g/dL (6.4-8.2)
[2024-04-16 17:36] LABS: HCG Qual (Serum) Negative
[2024-04-16 18:08] LABS: Creatine Kinase 770 U/L (26-192)
[2024-04-16] MEDS: Omnipaque 350 MG/ML 100 ML BTL IJ (18:27)
[2024-04-16] MEDS: Normal Saline - Diluent 50 ML VIAL IJ (18:27)
[2024-04-16] MEDS: Normal Saline 500 ML 1000 ML IV (18:47)
[2024-04-16 19:34] LABS: COVID-19 PCR Negative (Negative); Influenza A PCR Negative (Negative); Influenza B PCR Negative (Negative); RSV PCR Negative (Negative)
[2024-04-16 19:37] LABS: Source Nasopharynx
[2024-04-16 20:59] LABS: Creatine Kinase 583 U/L (26-192)
--- NOTE | 2024-04-16 21:15 | DI.RAD_ITS ---
Exam(s) XR CHEST 2V PA LATERAL EXAM: XR CHEST 2V PA LATERAL CLINICAL HISTORY: shortness of breath TECHNIQUE: 2D digital imaging was performed. Two views. COMPARISON: CR CHEST 2 VIEWS PA,LAT from 12/05/2010 FINDINGS: Exam is limited by suboptimal pulmonary inflation on the lateral view. HEART: Normal size. Aorta: Not dilated. PULMONARY VASCULATURE: Normal. MEDIASTINUM: Unremarkable. LUNGS: Clear. PLEURAL SPACE: No pleural effusion or pneumothorax. BONE:Prominent thoracic kyphosis but no compression fractures are visible. Degenerative disc changes . SOFT TISSUES: Unremarkable. IMPRESSION: No acute abnormality. DATA REPOSITORY: RADIATION DOSE DELIVERED:
--- NOTE | 2024-04-16 21:55 | W.ED.GENAD ---
Discharge Plan Disposition Patient Disposition: Home Condition: Stable Discharge Details Clinical Impression: Pneumonia Primary Care Provider: Thao Child ED Provider: Eleonora Pool Home Meds and New Rx's Prescriptions: New doxycycline monohydrate 100 mg capsule 100 mg PO BID Qty: 14 0RF Continued ferrous gluconate 324 mg (37.5 mg iron) tablet 324 mg PO TID All Day Allergy (cetirizine) 10 mg capsule 10 mg PO DAILY PRN cyanocobalamin (vitamin B-12) 1,000 mcg capsule 1,000 mcg PO DAILY cholecalciferol (vitamin D3) 10 mcg (400 unit) capsule 10 mcg PO DAILY calcium polycarbophil [Fiber Laxative (ca polycarbo)] 625 mg tablet 625 mg PO BID famotidine 10 mg tablet 10 mg PO DAILY paroxetine HCl [Paxil CR] 12.5 mg tablet extended release 24 hr 12.5 mg PO DAILY bupropion HCl 200 mg tablet sustained-release 12 hr 200 mg PO DAILY calcium carbonate [Tums] 200 mg calcium (500 mg) tablet,chewable 200 mg PO DIRECTED PRN prazosin 2 mg capsule 2 mg PO QPM amitriptyline 25 mg tablet 25 mg PO QPM risperidone [Risperdal] 4 mg tablet 4 mg PO DAILY Patient Comments: Take 1/2 tablet by mouth twice a day Discharge Instructions Instructions: Community-acquired pneumonia in adults Additional Instructions: Take the doxycycline as prescribed, yogurt daily while on the antibiotic Recheck with your primary care physician tomorrow You must have at least eight 8 ounce glasses of water daily Please return should you develop worsening shortness of breath or symptoms progress in any way Recommend taking a multivitamin daily you received 1 dose of antibiotic this evening, you will take your next dose 12 hours later and continue taking this antibiotic every 12 hours, a prescription has been sent to your pharmacy Referrals: Thao Child [Primary Care Provider] - 1 day HPI General Date/Time Provider Initiated Documentation: 04/16/24 16:39. HPI Narrative: This 33-year-old female presents with report of nausea and feeling lightheaded. Her symptoms have been going on intermittently for the past month per caregiver. She denies any vomiting or diarrhea. Unfortunately the patient is a poor historian so the majority of history was obtained from immigration case manager in room. Patient is not reportedly denies any illicit drug use. Denies any attempts to harm self. Denies known sick contacts. Apparently was evaluated at an outside facility and had blood work and labs and was feeling symptomatically improved and was discharged home approximately a month ago for similar presentation. Related Data Home Medications ?Medication ?Instructions ?Recorded ?Confirmed amitriptyline 25 mg tablet 25 mg PO QPM 03/07/23 04/16/24 bupropion HCl 200 mg tablet,12 hr 200 mg PO DAILY 03/07/23 04/16/24 sustained-release calcium carbonate (Tums) 200 mg PO DIRECTED PRN 03/07/23 04/16/24 calcium polycarbophil 625 mg 625 mg PO BID 03/07/23 04/16/24 tablet (Fiber Laxative (calcium polycarbophil)) cetirizine 10 mg capsule (All Day 10 mg PO DAILY PRN 03/07/23 04/16/24 Allergy (cetirizine)) cholecalciferol (vitamin D3) 10 10 mcg PO DAILY 03/07/23 04/16/24 mcg (400 unit) capsule cyanocobalamin (vitamin B-12) 1,000 mcg PO DAILY 03/07/23 04/16/24 1,000 mcg capsule famotidine 10 mg tablet 10 mg PO DAILY 03/07/23 04/16/24 ferrous gluconate 324 mg (37.5 mg 324 mg PO TID 03/07/23 04/16/24 iron) tablet paroxetine HCl 12.5 mg 12.5 mg PO DAILY 03/07/23 04/16/24 tablet,extended release 24 hr (Paxil CR) prazosin 2 mg capsule 2 mg PO QPM 03/07/23 04/16/24 doxycycline monohydrate 100 mg 100 mg PO BID #14 caps 04/16/24 capsule risperidone 4 mg tablet (Risperdal) 4 mg PO DAILY 04/16/24 04/16/24 Previous Rx's ?Medication ?Instructions ?Recorded doxycycline monohydrate 100 mg 100 mg PO BID #14 caps 04/16/24 capsule Allergies Allergy/AdvReac Type Severity Reaction Status Date / Time erythromycin base AdvReac Unknown unknown Unverified 04/16/24 18:46 (Erythromycin Base) melatonin AdvReac Unknown states a Unverified 04/16/24 18:46 sensitivity Sulfa (Sulfonamide AdvReac Unknown states Unverified 04/16/24 18:46 Antibiotics) sensitivty sulfamethoxazole (From AdvReac Unknown unkown Unverified 04/16/24 18:46 Bactrim) trimethoprim (From Bactrim) AdvReac Unknown unkown Unverified 04/16/24 18:46 trazadone Allergy Unknown Other (See Uncoded 04/16/24 18:46 Comment) tape AdvReac Mild Hives Uncoded 04/16/24 18:46 General Stated Complaint: Abd Prob TUNG: 3 Exam Narrative Exam Narrative: Alert and oriented at her baseline 33-year-old female in no acute distress, pupils equal round reactive to light and accommodation, lungs clear to auscultation, cardiac rate rhythm regular, no calf swelling or tenderness appreciated. Mild diffuse abdominal pain. No rebound or guarding, distal pulses intact, no CVA tenderness Course Vital Signs Vital signs: Vital Signs Temperature 36.9 C 04/16/24 16:31 Pulse 100 H 04/16/24 16:31 Respiratory Rate 15 04/16/24 16:31 Blood Pressure 126/79 04/16/24 16:31 Pulse Oximetry 99 04/16/24 16:31 Temperature 36.9 C 04/16/24 16:37 Temperature Source Oral 04/16/24 16:37 Pulse 100 H 04/16/24 16:37 Respiratory Rate 15 04/16/24 16:37 Respiratory Effort Normal 04/16/24 16:37 Blood Pressure 126/79 04/16/24 16:37 Blood Pressure Position Sitting 04/16/24 16:37 Pulse Oximetry 99 04/16/24 16:37 Oxygen Delivery Method Room Air 04/16/24 16:37 Oxygen Flow Rate 0 04/16/24 16:31 Pain Level 6 04/16/24 16:31 Lab/Test Results Lab/Test Results: Laboratory Tests Range/Units 04/16/24 04/16/24 04/16/24 16:50 16:55 17:02 WBC (4.4-10.8) 10^3/uL 7.22 RBC (3.93-5.22) 10^6/uL 4.45 Hgb (11.2-15.7) g/dL 11.9 Hct (36.0-46.0) % 37.5 MCV (80-95) fL 84 MCH (27.0-33.0) pg 26.7 L MCHC (32.0-36.0) % 31.7 L RDW (11.7-14.6) % 14.0 Plt Count (130-400) 10^3/uL 269 MPV (8.0-11.0) fL 9.3 Immature Gran % % 0.3 Neutrophils % % 73.6 Lymphocytes % % 17.5 Monocytes % % 7.6 Eosinophils % % 0.4 Basophils % % 0.6 Nucleated RBC % (0.0-0.3) % 0.0 Absolute Neutrophils (1.2-6.7) 10^3/uL 5.32 Absolute Lymphocytes (1.2-3.4) 10^3/uL 1.26 Absolute Monocytes (0.1-0.8) 10^3/uL 0.55 Absolute Eosinophils (0.0-0.7) 10^3/uL 0.03 Absolute Basophils (0.0-0.2) 10^3/uL 0.04 Sodium (136-145) mmol/L 138 Potassium (3.5-5.1) mmol/L 3.3 L Chloride (98-107) mmol/L 102 Carbon Dioxide (21.0-32.0) mmol/L 24.3 Anion Gap (3-11) mmol/L 11.7 H BUN (7-18) mg/dL 14 Creatinine (0.55-1.02) mg/dL 0.8 Est GFR (CKD-EPI 2020) (mL/min/1.73m2) 99.09 Glucose (74-106) mg/dL 97 Calcium (8.5-10.1) mg/dL 9.3 Magnesium (1.8-2.4) mg/dL 1.8 Total Bilirubin (0.2-1.0) mg/dL 0.38 AST (15-37) U/L 29 ALT (14-59) U/L 36 Alkaline Phosphatase (46-116) U/L 77 Creatine Kinase (26-192) U/L 770 H Total Protein (6.4-8.2) g/dL 7.9 Albumin (3.4-5.0) g/dL 3.8 Lipase (16-77) U/L 29 Serum HCG, Qual Negative Urine Color (Yellow) Yellow Urine Clarity (Clear) Clear Urine pH (5-8) 6.0 Ur Specific [place] (1.005-1.025) >= 1.030 H Urine Protein (Neg-Trace) mg/dL 100 H Urine Ketones (Negative) mg/dL >=160 H Urine Blood (Negative) Negative Urine Nitrite (Negative) Negative Urine Bilirubin (Negative) Moderate H Urine Urobilinogen (Up to 0.2) mg/dL 1.0 H Ur Leukocyte Esterase (Negative) Negative Urine RBC (0-2) HPF 0-2 Urine WBC (0-5) HPF 5-10 Ur Epithelial Cells (Negative) HPF Many Urine Crystals (Negative) HPF Negative Urine Bacteria (Negative) HPF Rare Urine Casts (Negative) LPF Negative Urine Mucus (Negative) Heavy Ur Culture Indicated? No/Sq. Contamination Urine Glucose (Negative) mg/dL Negative COVID-19 Source Nasopharynx SARS-CoV-2 (PCR) (Negative) Negative Influenza Type A (PCR) (Negative) Negative Influenza Type B (PCR) (Negative) Negative RSV (PCR) (Negative) Negative Range/Units 04/16/24 20:33 WBC (4.4-10.8) 10^3/uL RBC (3.93-5.22) 10^6/uL Hgb (11.2-15.7) g/dL Hct (36.0-46.0) % MCV (80-95) fL MCH (27.0-33.0) pg MCHC (32.0-36.0) % RDW (11.7-14.6) % Plt Count (130-400) 10^3/uL MPV (8.0-11.0) fL Immature Gran % % Neutrophils % % Lymphocytes % % Monocytes % % Eosinophils % % Basophils % % Nucleated RBC % (0.0-0.3) % Absolute Neutrophils (1.2-6.7) 10^3/uL Absolute Lymphocytes (1.2-3.4) 10^3/uL Absolute Monocytes (0.1-0.8) 10^3/uL Absolute Eosinophils (0.0-0.7) 10^3/uL Absolute Basophils (0.0-0.2) 10^3/uL Sodium (136-145) mmol/L Potassium (3.5-5.1) mmol/L Chloride (98-107) mmol/L Carbon Dioxide (21.0-32.0) mmol/L Anion Gap (3-11) mmol/L BUN (7-18) mg/dL Creatinine (0.55-1.02) mg/dL Est GFR (CKD-EPI 2020) (mL/min/1.73m2) Glucose (74-106) mg/dL Calcium (8.5-10.1) mg/dL Magnesium (1.8-2.4) mg/dL Total Bilirubin (0.2-1.0) mg/dL AST (15-37) U/L ALT (14-59) U/L Alkaline Phosphatase (46-116) U/L Creatine Kinase (26-192) U/L 583 H Total Protein (6.4-8.2) g/dL Albumin (3.4-5.0) g/dL Lipase (16-77) U/L Serum HCG, Qual Urine Color (Yellow) Urine Clarity (Clear) Urine pH (5-8) Ur Specific [place] (1.005-1.025) Urine Protein (Neg-Trace) mg/dL Urine Ketones (Negative) mg/dL Urine Blood (Negative) Urine Nitrite (Negative) Urine Bilirubin (Negative) Urine Urobilinogen (Up to 0.2) mg/dL Ur Leukocyte Esterase (Negative) Urine RBC (0-2) HPF Urine WBC (0-5) HPF Ur Epithelial Cells (Negative) HPF Urine Crystals (Negative) HPF Urine Bacteria (Negative) HPF Urine Casts (Negative) LPF Urine Mucus (Negative) Ur Culture Indicated? Urine Glucose (Negative) mg/dL COVID-19 Source SARS-CoV-2 (PCR) (Negative) Influenza Type A (PCR) (Negative) Influenza Type B (PCR) (Negative) RSV (PCR) (Negative) Medical Decision Making 33-year-old female at reported baseline, poor historian, here with caregivers. No acute distress, mild tachycardia, improved after fluids, mild elevation in CPK consistent with patient's generalized discomfort, improved with fluids from 700-500. CT abdomen and pelvis is ordered secondary to abdominal pain and patient's poor historian status, there is no acute abnormality, urinalysis indicative of likely dehydration with significant ketones, has had excellent urinary output after 3 L of fluids and is able to drink. Chest x-ray was ordered secondary to mild persistent tachycardia with mild tachypnea there is evidence of an infiltrate, I will initiate doxycycline at this time. Had a long discussion with patient's caregivers. I attempted to call patient's guardian twice, she did not answer her phone, I had caregiver attempted call guardian as well and she was not available. Specific instructions were supplied to caregivers and patient and caregiver expressed understanding. Discharged home in stable condition, recheck with primary care physician tomorrow recommended. Early return precautions reviewed and caregivers expressed understanding. Quality:SDOH Health Related Social Needs: No Data to Display PFSH All Active Problems (Updated 04/16/24 @ 22:09 by SERGIO Jerome) Pneumonia (Acute) Ibuprofen overdose (Acute) Gastritis (Acute) Medical History (Updated 04/16/24 @ 22:09 by SERGIO Jerome) Onychomycosis Strabismus Scoliosis Urinary incontinence Restless leg syndrome Jaw pain Acquired deformity of jaw Learning disability Intellectual developmental disorder, moderate PTSD (post-traumatic stress disorder) Anxiety Hyperlipidemia Chronic diarrhea Microscopic colitis GERD (gastroesophageal reflux disease) Vitamin D deficiency Cervicalgia Pharyngitis Ear pain, left B12 deficiency Low ferritin level Insomnia Fatigue Surgical History (Updated 03/07/23 @ 15:48 by Joan Ceballos) Hx of colonoscopy History of endometrial ablation History of esophagogastroduodenoscopy (EGD) Social History (Updated 03/07/23 @ 15:49 by Joan Ceballos) Smoking/Tobacco Use Status: Never Smoking risk assessment performed?: Yes Alcohol Intake: never Drug use: Never Adopted: Yes
[2024-04-16 22:32] VITALS: BP 143/66; PULSE 97; RESP 24; TEMP 36.9; O2SAT 99
--- NOTE | 2024-04-16 23:22 | DI.VRAD_ITS ---
PROCEDURE INFORMATION: Exam: XR Chest Exam date and time: 04/16/2024 10:02 PM Age: 33 years old Clinical indication: Shortness of breath TECHNIQUE: Imaging protocol: Radiologic exam of the chest. Views: 2 views. COMPARISON: CT ABDOMEN PELVIS W 04/16/2024 6:24 PM FINDINGS: Lungs: Unremarkable. No consolidation. Pleural spaces: Unremarkable. No pleural effusion. No pneumothorax. Heart/Mediastinum: Unremarkable. No cardiomegaly. Bones/joints: Increased thoracic kyphosis. IMPRESSION: No acute cardiopulmonary process. Dictated and Authenticated by: Sourav Laguerre MD. Ordering:BARBARA Crews MD
== END 2024-04-16 22:32 | disposition home or self-care (01) ==
PROVIDERS: Emergency Provider Physician Assistant; PCP Nurse Practitioner Family
DX: J18.9 Pneumonia, unspecified organism (principal); R11.0 Nausea; R10.84 Generalized abdominal pain; R00.0 Tachycardia, unspecified
CPT/HCPCS: 80053; 82550; 83690; 87637; 93005; 96360; 96361; 99285; 71046; 74177; 81003; 81015; 83735; 84703; 85025; 93010; 99284; J3490

== ENCOUNTER 2024-12-19 09:43 | Emergency (ER) | payer MEDICARE, MEDICAID, SELFPAY ==
[2024-12-19 09:58] VITALS: BP 128/86; PULSE 75; RESP 14; TEMP 36.7; O2SAT 96
[2024-12-19 10:10] VITALS: BP 128/86; PULSE 75; RESP 14; TEMP 36.7; O2SAT 96
[2024-12-19] MEDS: Lidocaine/Prilocaine Cream 5 GM TUBE TP (10:54)
[2024-12-19 11:01] LABS: Abs Immature Grans 0.02 10^3/uL (0.0-0.06); Absolute Basophil Count 0.05 10^3/uL (0.0-0.2); Absolute Eosinophil Count 0.09 10^3/uL (0.0-0.7); Absolute Lymphocyte Count 1.94 10^3/uL (1.2-3.4); Absolute Monocyte Count 0.43 10^3/uL (0.1-0.8); Absolute Neutrophil Count 3.69 10^3/uL (1.2-6.7); Basophils % 0.8 %; Eosinophils % 1.4 %; HCT 39.3 % (36.0-46.0); HGB 12.8 g/dL (11.2-15.7); Immature Grans % 0.3 %; Lymphocytes % 31.2 %; MCH 28.6 pg (27.0-33.0); MCHC 32.6 % (32.0-36.0); MCV 88 fL (80-95); MPV 9.5 fL (8.0-11.0); Monocytes % 6.9 %; Neutrophils % 59.4 %; Platelet Count 290 10^3/uL (130-400); RBC 4.48 10^6/uL (3.93-5.22); RDW 13.1 % (11.7-14.6); RDW-SD 41.7 fL; WBC 6.22 10^3/uL (4.4-10.8)
[2024-12-19] MEDS: Omnipaque 350 MG/ML 100 ML BTL IJ (11:14)
[2024-12-19] MEDS: Normal Saline - Diluent 50 ML VIAL IJ (11:19)
--- NOTE | 2024-12-19 11:21 | ED.GENADUL_ITS ---
Discharge Plan Disposition Patient Disposition: Home Condition: Stable Discharge Details Clinical Impression: Pain due to dental caries Primary Care Provider: Thao Child ED Provider: Jose Vincent Home Meds and New Rx's Prescriptions: Continued ferrous gluconate 324 mg (37.5 mg iron) tablet 324 mg PO TID All Day Allergy (cetirizine) 10 mg capsule 10 mg PO DAILY PRN cyanocobalamin (vitamin B-12) 1,000 mcg capsule 1,000 mcg PO DAILY cholecalciferol (vitamin D3) 10 mcg (400 unit) capsule 10 mcg PO DAILY calcium polycarbophil [Fiber Laxative (ca polycarbo)] 625 mg tablet 625 mg PO BID famotidine 10 mg tablet 10 mg PO DAILY paroxetine HCl [Paxil CR] 12.5 mg tablet extended release 24 hr 12.5 mg PO DAILY bupropion HCl 200 mg tablet sustained-release 12 hr 200 mg PO DAILY calcium carbonate [Tums] 200 mg calcium (500 mg) tablet,chewable 200 mg PO DIRECTED PRN prazosin 2 mg capsule 2 mg PO QPM amitriptyline 25 mg tablet 25 mg PO QPM risperidone [Risperdal] 4 mg tablet 4 mg PO DAILY Patient Comments: Take 1/2 tablet by mouth twice a day Discharge Instructions Instructions: Dental Pain ED Additional Instructions: You were seen in the emergency department for your dental pain, there is no sign of infection on blood work or CT, please continue using the amoxicillin you have been prescribed and follow-up with your dentist, take Tylenol and ibuprofen for pain as needed, use tea with honey or home remedies like close for dental pain with some research on the Internet. Please return for any inability to open or close the jaw, severe vocal changes, not tolerating swallowing liquids or solids or any other emergent concerns. Referrals: Thao Child [Primary Care Provider] - Discharge Data Discharge Date/Time-TO BE ENTERED AT DEPARTURE: 12/19/24 12:23 HPI General Date/Time Provider Initiated Documentation: 12/19/24 09:50 . HPI Narrative: 34 year-old female presents to ED today by POV/ambulating with caregiver with a chief complaint of dental pain, not feeling well with onset this morning after breakfast- endorsed nausea. Quality described as some L sided jaw swelling, dysphagia, no radiation to fever, vomiting, chest pain, shortness of breath, respiratory distress, vocal changes, trismus. Severity is described as moderate. Palliating factors include Tylenol with some relief. Provoking factors include nothing specific. Patient currently taking amoxicillin Rx'd by her dentist. Patient not anticoagulated. Related Data Home Medications ?Medication ?Instructions ?Recorded ?Confirmed amitriptyline 25 mg tablet 25 mg PO QPM 03/07/23 12/19/24 bupropion HCl 200 mg tablet,12 hr 200 mg PO DAILY 03/07/23 12/19/24 sustained-release calcium carbonate (Tums) 200 mg PO DIRECTED PRN 03/07/23 12/19/24 calcium polycarbophil 625 mg 625 mg PO BID 03/07/23 12/19/24 tablet (Fiber Laxative (calcium polycarbophil)) cetirizine 10 mg capsule (All Day 10 mg PO DAILY PRN 03/07/23 12/19/24 Allergy (cetirizine)) cholecalciferol (vitamin D3) 10 10 mcg PO DAILY 03/07/23 12/19/24 mcg (400 unit) capsule cyanocobalamin (vitamin B-12) 1,000 mcg PO DAILY 03/07/23 12/19/24 1,000 mcg capsule famotidine 10 mg tablet 10 mg PO DAILY 03/07/23 04/16/24 ferrous gluconate 324 mg (37.5 mg 324 mg PO TID 03/07/23 12/19/24 iron) tablet paroxetine HCl 12.5 mg 12.5 mg PO DAILY 03/07/23 12/19/24 tablet,extended release 24 hr (Paxil CR) prazosin 2 mg capsule 2 mg PO QPM 03/07/23 12/19/24 risperidone 4 mg tablet (Risperdal) 4 mg PO DAILY 04/16/24 12/19/24 Allergies Allergy/AdvReac Type Severity Reaction Status Date / Time erythromycin base AdvReac Unknown unknown Unverified 12/19/24 10:02 (Erythromycin Base) melatonin AdvReac Unknown states a Unverified 12/19/24 10:02 sensitivity Sulfa (Sulfonamide AdvReac Unknown states Unverified 12/19/24 10:02 Antibiotics) sensitivty sulfamethoxazole (From AdvReac Unknown unkown Unverified 12/19/24 10:02 Bactrim) trimethoprim (From Bactrim) AdvReac Unknown unkown Unverified 12/19/24 10:02 trazadone Allergy Unknown Other (See Uncoded 12/19/24 10:02 Comment) tape AdvReac Mild Hives Uncoded 12/19/24 10:02 General Stated Complaint: GenMedical TUGN: 4 Review of Systems All systems reviewed & are unremarkable except as noted in HPI and below Exam Narrative Exam Narrative: GENERAL APPEARANCE: Well-nourished, non-toxic, awake and alert, atraumatic, no acute distress. SKIN: Warm, pink, dry, intact, without rashes/lesions/ulcerations. HEAD: Normocephalic, atraumatic, normal hair distribution for gender/age. EYES: Normal conjunctiva, no exudates on lids/lashes. ENT: Nares patent, no circumoral cyanosis, poor dentition left lower jaw, no visible gingival abscess, uvula midline, no tongue deviation, no trismus, no vocal changes, managing secretions well, mild swelling to the left side of face and left submandibular area NECK: Supple, trachea midline, painless cervical ROM. LUNGS/CHEST: Non-labored respirations, normal A/P diameter, symmetrical expansion, no chest wall deformity HEART (CV/PV): No peripheral edema, no JVD. ABDOMEN: Soft, non-distended, no guarding. MSK: Normal ROM, no swelling/deformity to bilateral UEs or LEs, moving all extremities without weakness, no cyanosis, spine midline without tenderness, normal curvature. NEURO: Mental Status AAOx4 - alert to person, place, time, events No facial droop, no forehead involvement. Gait NT. PSYCH: euthymic, cooperative, pleasant, appropriate speech Course Vital Signs Vital signs: Vital Signs Temperature 36.7 C 12/19/24 09:58 Pulse 75 12/19/24 09:58 Respiratory Rate 14 12/19/24 09:58 Blood Pressure 128/86 12/19/24 09:58 Pulse Oximetry 96 12/19/24 09:58 Temperature 36.7 C 12/19/24 10:10 Temperature Source Oral 12/19/24 10:10 Pulse 75 12/19/24 10:10 Respiratory Rate 14 12/19/24 10:10 Respiratory Effort Normal, Non-Labored 12/19/24 10:09 Respiratory Depth Normal 12/19/24 10:09 Respiratory Pattern Normal 12/19/24 10:09 Blood Pressure 128/86 12/19/24 10:10 Blood Pressure Position Sitting 12/19/24 10:10 Pulse Oximetry 96 12/19/24 10:10 Oxygen Delivery Method Room Air 12/19/24 10:10 Oxygen Flow Rate 0 12/19/24 10:10 Lab/Test Results Lab/Test Results: Laboratory Tests Range/Units 12/19/24 10:51 WBC (4.4-10.8) 10^3/uL 6.22 RBC (3.93-5.22) 10^6/uL 4.48 Hgb (11.2-15.7) g/dL 12.8 Hct (36.0-46.0) % 39.3 MCV (80-95) fL 88 MCH (27.0-33.0) pg 28.6 MCHC (32.0-36.0) % 32.6 RDW (11.7-14.6) % 13.1 Plt Count (130-400) 10^3/uL 290 MPV (8.0-11.0) fL 9.5 Immature Gran % % 0.3 Neutrophils % % 59.4 Lymphocytes % % 31.2 Monocytes % % 6.9 Eosinophils % % 1.4 Basophils % % 0.8 Nucleated RBC % (0.0-0.3) % 0.0 Absolute Neutrophils (1.2-6.7) 10^3/uL 3.69 Absolute Lymphocytes (1.2-3.4) 10^3/uL 1.94 Absolute Monocytes (0.1-0.8) 10^3/uL 0.43 Absolute Eosinophils (0.0-0.7) 10^3/uL 0.09 Absolute Basophils (0.0-0.2) 10^3/uL 0.05 Medical Decision Making This dictation utilizes [id number] dictation software and may contain unedited grammatical errors. 34 year-old female presents to ED today by POV/ambulating with caregiver with a chief complaint of dental pain, not feeling well with onset this morning after breakfast- endorsed nausea. Quality described as some L sided jaw swelling, dysphagia, no radiation to fever, vomiting, chest pain, shortness of breath, re spiratory distress, vocal changes, trismus. Severity is described as moderate. Palliating factors include Tylenol with some relief. Provoking factors include nothing specific. Patients' medical history: Learning disability, developmentally delayed, history of anxiety, hyperlipidemia, GERD, cervicalgia. Family and social history: Noncontributory. Pertinent exam findings / vital signs include left-sided jaw tenderness, no visible gingival abscess, no trismus, no excessive drooling, left-sided mandibular and submandibular mild swelling. 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 Diagnostic studies of: - CBC, CMP, CRP, CT neck with contrast. - CBC shows no acute abnormality - CMP benign - CRP negative - CT neck shows no acute pathology, periapical lucency around one of the left mandibular molars without abscess Interventions of: -None- continue Rx of amoxicillin that her dentist provided. ED Course/Assessment/Plan: 34-year-old female with intellectual delay presents to the ED for left-sided jaw swelling, not feeling well after breakfast today, is currently on amoxicillin for dental infection, has some increased left-sided jaw swelling but no overt trismus or vocal changes, no visible gingival abscess, CT of the neck shows no deep space infection labs are reassuring, advised to continue amoxicillin and provide adequate dose of Tylenol and ibuprofen, strict return criteria for any trismus redness, complete dysphagia, drooling or other emergent concerns, I did speak with the patient's guardian by phone- verbalized understanding the plan. Findings not consistent with deep space infection, tonsillitis, URI, respiratory distress, airway compromise, Beau's angina Disposition of Pain Due to Dental Caries. Patient verbalized understanding of the plan and return to ED criteria and engaged in shared decision making. Medical Records Medical records reviewed: Yes I reviewed the patient's medical records. Imaging Data Radiologic Study: Attestation: I personally reviewed and interpreted this imaging study as follows: Imaging: CT Scan Radiologist's impression: EXAM: CT NECK W INDICATION: facial swelling, dental pain, dysphagia. COMPARISON: No exams were available for comparison TECHNIQUE: FINDINGS: VISUALIZED PARANASAL SINUSES: There is mucosal thickening in the floor and medial wall the left maxillary sinus. No associated fluid level. The opposite- right maxillary sinus is clear as are the ethmoidal air cells and nasal passages. Sphenoid sinuses are clear. Partially visualized frontal sinuses are clear. No obvious mastoid effusions. NASOPHARYNX: Unremarkable ORODENTAL: There are degenerative changes in the bilateral TM joints. There is periapical lucency around one of the left mandibular mole ours. There are no obvious abscess is evident. OROPHARYNX: Mild enlargement of the pharyngeal tonsils. No abscess at this level seen. Uvula is relatively midline. There is no evidence of retropharyngeal abscess. HYPOPHARYNX: Unremarkable. Valleculae and epiglottis and aryepiglottic folds appear normal. VOCAL CORDS: Unremarkable. No masses evident. Subglottic airway appears unremarkable. THYROID GLAND: Unremarkable. Normal size and no obvious nodules. SALIVARY GLANDS: Unremarkable. No significant findings in the parotid and submandibular glands. LYMPH NODES: There is no adenopathy evident in the neck and supraclavicular regions. OTHER: VISUALIZED LUNG APICES: No significant findings. IMPRESSION: 1. Findings as above but without evidence of stephani dental soft tissue abscess, as per request. 2. There is some mucosal thickening noted in left maxillary sinus but no fluid level therein. Findings discussed by phone with ER provider 12/19/2024 at 12 noon Lab Data Lab results reviewed: Yes I reviewed the patient's lab results. Labs: Laboratory Tests Range/Units 12/19/24 10:51 WBC (4.4-10.8) 10^3/uL 6.22 RBC (3.93-5.22) 10^6/uL 4.48 Hgb (11.2-15.7) g/dL 12.8 Hct (36.0-46.0) % 39.3 MCV (80-95) fL 88 MCH (27.0-33.0) pg 28.6 MCHC (32.0-36.0) % 32.6 RDW (11.7-14.6) % 13.1 Plt Count (130-400) 10^3/uL 290 MPV (8.0-11.0) fL 9.5 Immature Gran % % 0.3 Neutrophils % % 59.4 Lymphocytes % % 31.2 Monocytes % % 6.9 Eosinophils % % 1.4 Basophils % % 0.8 Nucleated RBC % (0.0-0.3) % 0.0 Absolute Neutrophils (1.2-6.7) 10^3/uL 3.69 Absolute Lymphocytes (1.2-3.4) 10^3/uL 1.94 Absolute Monocytes (0.1-0.8) 10^3/uL 0.43 Absolute Eosinophils (0.0-0.7) 10^3/uL 0.09 Absolute Basophils (0.0-0.2) 10^3/uL 0.05 Sodium (136-145) mmol/L 142 Potassium (3.5-5.1) mmol/L 4.1 Chloride (98-107) mmol/L 105 Carbon Dioxide (21.0-32.0) mmol/L 30.6 Anion Gap (3-11) mmol/L 6.4 BUN (7-18) mg/dL 9 Creatinine (0.55-1.02) mg/dL 0.7 Est GFR (CKD-EPI 2020) (mL/min/1.73m2) 115.59 Glucose (74-106) mg/dL 86 Calcium (8.5-10.1) mg/dL 9.7 Total Bilirubin (0.2-1.0) mg/dL 0.2 AST (15-37) U/L 13 L ALT (14-59) U/L 20 Alkaline Phosphatase (46-116) U/L 75 C-Reactive Protein (<or=0.5) mg/dL < 0.50 Total Protein (6.4-8.2) g/dL 7.5 Albumin (3.4-5.0) g/dL 3.8 Quality:SDOH Health Related Social Needs: No Data to Display PFSH All Active Problems (Updated 12/19/24 @ 12:14 by SERGIO Dillon) Pain due to dental caries (Acute) Ibuprofen overdose (Acute) Gastritis (Acute) Medical History (Updated 12/19/24 @ 12:14 by SERGIO Dillon) Onychomycosis Strabismus Scoliosis Urinary incontinence Restless leg syndrome Jaw pain Acquired deformity of jaw Learning disability Intellectual developmental disorder, moderate PTSD (post-traumatic stress disorder) Anxiety Hyperlipidemia Chronic diarrhea Microscopic colitis GERD (gastroesophageal reflux disease) Vitamin D deficiency Cervicalgia Pharyngitis Ear pain, left B12 deficiency Low ferritin level Insomnia Fatigue Surgical History (Updated 03/07/23 @ 15:48 by Joan Ceballos) Hx of colonoscopy History of endometrial ablation History of esophagogastroduodenoscopy (EGD) Social History (Updated 03/07/23 @ 15:49 by Joan Ceballos) Smoking/Tobacco Use Status: Never Smoking risk assessment performed?: Yes Alcohol Intake: never Drug use: Never Adopted: Yes Do you feel safe at home: Yes Do you feel safe in your relationship?: Yes
[2024-12-19 11:23] LABS: ALT 20 U/L (14-59); AST 13 U/L (15-37); Albumin 3.8 g/dL (3.4-5.0); Alkaline Phosphatase 75 U/L (46-116); Anion Gap 6.4 mmol/L (3-11); BUN 9 mg/dL (7-18); Bilirubin, Total 0.2 mg/dL (0.2-1.0); C-Reactive Protein < 0.50 mg/dL (<or=0.5); CO2 30.6 mmol/L (21.0-32.0); CREATININE 0.7 mg/dL (0.55-1.02); Calcium 9.7 mg/dL (8.5-10.1); Chloride 105 mmol/L (98-107); Estimated GFR 115.59 (mL/min/1.73m2); Glucose 86 mg/dL (74-106); Potassium 4.1 mmol/L (3.5-5.1); Sodium 142 mmol/L (136-145); Total Protein 7.5 g/dL (6.4-8.2)
[2024-12-19 11:28] VITALS: BP 132/75; PULSE 76; RESP 18; O2SAT 98
--- NOTE | 2024-12-19 11:28 | DI.CT_ITS ---
Exam(s) CT NECK W EXAM: CT NECK W INDICATION: facial swelling, dental pain, dysphagia. COMPARISON: No exams were available for comparison TECHNIQUE: FINDINGS: VISUALIZED PARANASAL SINUSES: There is mucosal thickening in the floor and medial wall the left maxil charli sinus. No associated fluid level. The opposite-right maxillary sinus is clear as are the ethmo idal air cells and nasal passages. Sphenoid sinuses are clear. Partially visualized frontal sinuses are clear. No obvious mastoid effusions. NASOPHARYNX: Unremarkable ORODENTAL: There are degenerative changes in the bilateral TM joints. There is periapical lucency ar ound one of the left mandibular mole ours. There are no obvious abscess is evident. OROPHARYNX: Mild enlargement of the pharyngeal tonsils. No abscess at this level seen. Uvula is rel atively midline. There is no evidence of retropharyngeal abscess. HYPOPHARYNX: Unremarkable. Valleculae and epiglottis and aryepiglottic folds appear normal. VOCAL CORDS: Unremarkable. No masses evident. Subglottic airway appears unremarkable. THYROID GLAND: Unremarkable. Normal size and no obvious nodules. SALIVARY GLANDS: Unremarkable. No significant findings in the parotid and submandibular glands. LYMPH NODES: There is no adenopathy evident in the neck and supraclavicular regions. OTHER: VISUALIZED LUNG APICES: No significant findings. IMPRESSION: 1. Findings as above but without evidence of stephani dental soft tissue abscess, as per request. 2. There is some mucosal thickening noted in left maxillary sinus but no fluid level therein. Findings discussed by phone with ER provider 12/19/2024 at 12 noon RADIATION DOSE DELIVERED: 289.59mGy.cm Total DLP DATA REPOSITORY: All CT scans at this facility are submitted to the National Radiology Data Registry (NRDR) Dose Index Registry (DIR) with the [employer] ([employer]). RADIATION OPTIMIZATION: All CT scans at this facility use at least one of these dose optimization te chniques: automated exposure control; mA and/or kV adjustment per patient size (includes targeted exa ms where dose is matched to clinical indication); or iterative reconstruction.
== END 2024-12-19 12:23 | disposition home or self-care (01) ==
PROVIDERS: Emergency Provider Physician Assistant; PCP Nurse Practitioner Family
DX: K08.89 Other specified disorders of teeth and supporting structures (principal); K02.9 Dental caries, unspecified; E78.5 Hyperlipidemia, unspecified
CPT/HCPCS: 70491; 80053; 99284; 85025; 86140; J3490

== ENCOUNTER → 2025-04-22 09:45 | Outpatient (BNVA) | payer MEDICARE, MEDICAID, SELFPAY | PROVIDERS: PCP Nurse Practitioner Family; Referring Provider Nurse Practitioner Family; Visit Provider Podiatrist | DX: L60.3 Nail dystrophy (principal); B35.1 Tinea unguium; L03.115 Cellulitis of right lower limb; M79.674 Pain in right toe(s); M79.675 Pain in left toe(s); R09.89 Other specified symptoms and signs involving the circulatory and respiratory systems; L65.9 Nonscarring hair loss, unspecified; L60.8 Other nail disorders; L60.2 Onychogryphosis; R60.0 Localized edema | CPT/HCPCS: 11719 ==

== ENCOUNTER → 2025-07-01 09:19 | Outpatient (BNVA) | payer MEDICARE, MEDICAID, SELFPAY | PROVIDERS: PCP Nurse Practitioner Family; Referring Provider Nurse Practitioner Family; Visit Provider Podiatrist | DX: L60.3 Nail dystrophy (principal); B35.1 Tinea unguium; B07.0 Plantar wart; M89.8X7 Other specified disorders of bone, ankle and foot; M79.671 Pain in right foot; M79.672 Pain in left foot | CPT/HCPCS: 99214 ==